=== PATIENT | female | born 2000 | race Caucasian/White ===

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

== ENCOUNTER 2020-06-12 20:04 | Emergency (ER) | payer OTHER ==
[~2020-06-12 20:04] MED LIST: BENTYL 20MG TAB20 MG PO; FLONASE 0.05% N16 GM; OMEPRAZOLE40 MG PO; PROTONIX40 MG PO; ZOFRAN ODT 4 MG4 MG PO; ZOFRAN4 MG PO; ZYRTEC10 M3 PO
[2020-06-12] MEDS ORDERED: PEPCID20 MG PO (20:42)
[2020-06-12] MEDS ORDERED: BENADRYL 25MG C25 MG PO (20:42)
[2020-06-12] MEDS ORDERED: PREDNISONE10 MG PO (20:42)
[2020-06-12] MEDS ORDERED: EPIPEN 2-P0.3 MG/0.3 INJ (21:29)
== END 2020-06-12 21:57 | disposition home or self-care (01) ==
LOC: ER1 20:04
DX: T78.40XA Allergy, unspecified, initial encounter (principal)
CPT/HCPCS: 71045; 96374; 99283; J1100

== ENCOUNTER 2020-09-08 18:02 | Emergency (ER) | payer OTHER ==
[~2020-09-08 18:02] MED LIST changes: +BENADRYL 25MG C25 MG PO; +EPIPEN 2-P0.3 MG/0.3 INJ; +PEPCID20 MG PO; +PREDNISONE10 MG PO
== END 2020-09-08 19:32 | disposition left against medical advice (07) ==
LOC: ER1 18:02
DX: Z53.21 Procedure and treatment not carried out due to patient leaving prior to being seen by health care provider (principal)

== ENCOUNTER 2020-12-26 15:24 | Emergency (ER) | payer OTHER ==
[2020-12-26] MEDS ORDERED: BENADRYL25 MG PO (18:15)
== END 2020-12-26 18:19 | disposition home or self-care (01) ==
LOC: ER1 15:24
DX: T78.1XXA Other adverse food reactions, not elsewhere classified, initial encounter (principal); Z79.899 Other long term (current) drug therapy
CPT/HCPCS: 99282

== ENCOUNTER 2021-01-05 14:36 | Emergency (ER) | payer OTHER ==
[~2021-01-05 14:36] MED LIST changes: +BENADRYL25 MG PO
[2021-01-05 16:04] LABS: HEMOGLOBIN 14.5 gm/dl (12.3-15.3); RED BLOOD COUNT 4.7 M/UL (4.00-5.10); WHITE BLOOD COUNT 5.5 K/UL (4.5-11.0)
[2021-01-05 16:50] LABS: BUN/CREATININE RATIO 30 (0-10)
== END 2021-01-05 19:11 | disposition home or self-care (01) ==
LOC: ER1 14:36
PROVIDERS: Physician Assistant
DX: E86.0 Dehydration (principal); M54.5 Low back pain; J45.909 Unspecified asthma, uncomplicated; Z90.49 Acquired absence of other specified parts of digestive tract; Z91.013 Allergy to seafood
CPT/HCPCS: 71045; 80053; 81001; 82550; 82553; 83874; 84439; 84443; 84484; 84703; 85025; 93005; 99285

== ENCOUNTER 2021-02-16 16:55 | Emergency (ER) | payer OTHER ==
[2021-02-16 17:41] LABS: HEMOGLOBIN 14.4 gm/dl (12.3-15.3); RED BLOOD COUNT 4.6 M/UL (4.00-5.10); WHITE BLOOD COUNT 5.5 K/UL (4.5-11.0)
[2021-02-16 17:59] LABS: BUN/CREATININE RATIO 22 (0-10)
[2021-02-16] MEDS ORDERED: OMNICEF 300 MG300 MG PO (18:47)
== END 2021-02-16 19:10 | disposition home or self-care (01) ==
LOC: ER1 16:55
PROVIDERS: Emergency Medicine
DX: N39.0 Urinary tract infection, site not specified (principal); Z91.013 Allergy to seafood
CPT/HCPCS: 80053; 81001; 83690; 84703; 85025; 99284; J0696

== ENCOUNTER → 2021-05-30 | Outpatient (CLI) | payer OTHER ==
[~2021-05-30] MED LIST changes: +OMNICEF 300 MG300 MG PO
[2021-05-31 08:13] LABS: ALBUMIN 4.7 g/dL (3.9-5.0); BILIRUBIN, DIRECT 0.26 mg/dL (0.00-0.40); PROTEIN, TOTAL 6.9 g/dL (6.0-8.5)
== END ==
LOC: LAB 13:12
PROVIDERS: Physician Assistant Surgical
DX: R79.89 Other specified abnormal findings of blood chemistry (principal)
CPT/HCPCS: 36415; 80076

== ENCOUNTER → 2021-06-12 | Outpatient (CLI) | payer OTHER | LOC: KOH-I 12:50 | DX: U07.1 COVID-19 (principal) | CPT/HCPCS: 71046 ==

== ENCOUNTER → 2021-11-25 | Outpatient (CLI) | payer OTHER | LOC: LAB 12:58 | DX: R79.89 Other specified abnormal findings of blood chemistry (principal) | CPT/HCPCS: 36415; 80076 ==